=== PATIENT | male | born 1980 ===

== ENCOUNTER → 2017-07-07 | Outpatient (CLI) | payer BC ==
--- NOTE | 2017-07-08 23:04 | PULMONARY FUNCTION TEST ---
Spirometry is consistent with a mild obstructive pattern. Flow volume loops are consistent with spirometric findings.
== END | disposition home or self-care (01) ==
LOC: C.RC 13:40
PROVIDERS: ATTEND Family Medicine
DX: J45.909 Unspecified asthma, uncomplicated (principal)